=== PATIENT | female | born 2000 | race Caucasian/White ===

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

== ENCOUNTER → 2021-01-23 16:16 | Outpatient (CLI) | payer OTHER, MEDICAID, SELFPAY ==
[2021-01-24 13:35] LABS: Strep Grp B PCR POS for Grp B Strep
== END ==
PROVIDERS: PCP Family Medicine; Visit Provider Family Medicine
DX: Z34.83 Encounter for supervision of other normal pregnancy, third trimester (principal); Z3A.37 37 weeks gestation of pregnancy; Z36.85 Encounter for antenatal screening for Streptococcus B
CPT/HCPCS: 87653

== ENCOUNTER 2021-01-31 02:04 | Observation (INO) | payer OTHER, MEDICAID, SELFPAY | END 2021-01-31 02:55 | disposition home or self-care (01) | LOC: LABOR 02:08 | PROVIDERS: Admitting Provider Family Medicine; PCP Family Medicine; Referring Provider Family Medicine; Visit Provider Family Medicine | DX: O47.1 False labor at or after 37 completed weeks of gestation (principal); Z3A.38 38 weeks gestation of pregnancy | CPT/HCPCS: 59025; G0378; G0379 ==

== ENCOUNTER 2021-01-31 09:29 | Inpatient (IN) | payer OTHER, MEDICAID, SELFPAY ==
--- NOTE | 2021-01-31 10:42 | P.HPOB_ITS ---
OB HPI Date/Time Date of admission: 01/31/21 Date Patient Seen: 01/31/21 History of Present Condition Chief complaint: OBS/LABOR : 2 Para: 1 Estimated Date of Delivery: 02/12/21 Estimated Gestational Age (weeks): 38w2d Narrative: Yessenia Jimenez is a 20 year old at 38 weeks and 2 days gestation. Regular contractions began last night and picked up in intensity at about 2 this morning. She presented to the center but was sent home due to lack of cervical change. She returned this morning and was found to be 4 cm. Denies leaking or bleeding and reports good movement. has been uncomplicated. OB history: [birth year]/09/19 38 8 5 lb 14.7 oz Fem nir vaginal live - full term epidural IH w Dr. Dennis 17 mos+, still BF ? [place] History of Present care: good care, initiated at week # (9), number of visits (10) and pounds weight gain (13) Dating criteria: based on 1st trimester US only Ultrasounds: normal mid trimester US Preadmission Labs Blood type: A (+) positive -: Antibody screen: negative, GBS status: positive, HBsAG: negative, HIV: negative and RPR/VDLR: negative -: Chlamydia screen: not detected and Gonorrhea screen: not detected -: Rubella: immune and Varicella: not immune HCT: 31.5 HCAB: negative Quad screen: Normal Urine: Negative 1 hr GTT: 148 3 hr GTT: 1 hr (154), 2 hr (120) and 3 hr (123) Fasting blood glucose: 81 Evaluation Evaluation Baseline heart rate: 145 Variability: Moderate (11-25) monitor accelerations: Absent Monitor Decelerations: Absent Contraction Frequency (minutes): 4 Status: Category l Cervical dilation (cm): 8 Cervical effacement (%): 100 station: 0 PFSH Medical History Spontaneous vaginal delivery Family History Mother No problems noted. Father Family estrangement Grandmother Diabetes mellitus Grandfather Hyperlipidemia Grandmother Family estrangement Grandfather Family estrangement Family/Other Childhood asthma Depression Family/Other Down syndrome Social History marital status: unmarried,living together number of children: 1 household members: spouse, family and children lives independently: No caregiver/support person: No pets and animals: Yes (1 Dog: Does not trust around baby;aware & carefulsometimes snaps randomly) education level: high school occupational status: employed current occupational exposures/hazards: No special fito needs: No seatbelt use: always do you feel safe at home: Yes Smoking Status: Never smoker alcohol intake: former substance use type: does not use during the past year weight has: remained stable well-balanced diet: daily or most days daily servings fruits/ve-1 caffeine: Yes (Every other day: 1/2-1 cup.) Type(s) of exercise: none and normal ROM and activity Meds Home Medications and Allergies Home Medications Medication Instructions Recorded Confirmed Type prenat.vits,terrell,fig-kunw-oyrvh 1 tab PO DAILY 10/07/18 10/21/20 History sertraline 50 mg tablet 50 mg PO DAILY #30 tab 09/16/20 10/21/20 Rx Allergies Allergy/AdvReac Type Severity Reaction Status Date / Time No Known Drug Allergies Allergy Verified 10/21/20 08:18 Exam Vital Signs (past 8 hours): Temperature 98.1? blood pressure 117/77 heart rate 85 Const General: healthy appearing and comfortable HENMT Head: normal to inspection Ears: hearing grossly normal bilaterally Nose: external nose normal Face and sinus: normal facial exam Mouth: oral mucosae normal Eyes General: appearance normal, both eyes and all related structures Neck Neck: normal visual inspection Resp Effort & Inspection: normal respiratory effort Auscultation: clear to auscultation bilaterally Cardio Rate: regular rate Rhythm: regular rhythm Heart Sounds: no murmurs GI Other: Gravid External Female Exam: normal external appearance Manual OB Exam: dilated 8, effaced fully and station 0 Presentation: vertex Estimated Weight (lbs): 6 Back/Spine/Pelvis Back: normal to inspection Skin General: no rashes or lesions noted Extrem General: normal to inspection and no pedal edema Objective Labs Result Diagrams: 01/31/21 10:45 Assessment and Plan Assessment and Plan Assessment and Plan narrative: 20-year-old 38 weeks and 2 days in active labor. Patient now comfortable with epidural. GBS positive, COVID negative. Plan GBS prophylaxis with penicillin AROM after adequate antibiotics if not yet spontaneously ruptured Anticipate vaginal delivery
[2021-01-31 11:09] LABS: Add Manual Diff / Slide Review NO; Basophils Absolute Auto 0 /uL (0-100); Basophils Percent Auto 0.2 % (0-2); Eosinophils Absolute Auto 0 /uL (0-450); Hematocrit 31.5 % (36-46); Hemoglobin 10.3 g/dL (12.0-16.0); Lymphocytes Absolute Auto 1300 /uL (1100-4500); Lymphocytes Percent Auto 12.6 % (25-40); Mean Corpuscular HGB Conc 32.7 % (30-36); Mean Corpuscular Hemoglobin 25.7 PG (26-34); Mean Corpuscular Volume 78.5 fL (80-100); Monocytes Absolute Auto 400 /uL (0-900); Monocytes Percent Auto 4.3 % (3-14); Neutrophils Absolute Auto 8400 /uL (1500-7000); Neutrophils Percent Auto 82.9 % (50-75); Platelet Count 250 X10^3/uL (150-400); Red Blood Cell Count 4.02 X10^6/uL (4.0-5.2); Red Cell Distribution Width 14.1 % (11.6-14.8); White Blood Cell Count 10.1 X10^3/uL (4.5-11.0)
[2021-01-31] MEDS: LACTATED RINGERS 1,000 ML 100 ML IV (11:33)
[2021-01-31 11:34] LABS: COVID19 - ADMIT (NP swab/PCR) Negative (Negative)
[2021-01-31] MEDS: PENICILLIN G POTASSIUM 5,000,000 UNIT in DEXTROSE 5% IN WATER 250 ML IV (11:34)
[2021-01-31 11:54] VITALS: BP 127/74
[2021-01-31] MEDS: PENICILLIN G POTASSIUM 3,000,000 UNIT/50 ML FROZ.PIGGY 100 UNIT IV (14:57)
--- NOTE | 2021-01-31 16:03 | PM.OBPRVD ---
Labor & Delivery Delivery date: 01/31/21 Intrapartal Events: None Route of delivery: L&D Laceration Description: Perineal - 2nd Degree Delivery repair: chromic Estimated blood loss (mL): 200 Anesthesia Type: Epidural Narrative: Patient is a 20-year-old at 38 weeks and 2 days gestation who arrived in active labor. She was GBS positive and received 2 doses of antibiotics prior to delivery. She received an epidural with adequate pain control. Stage I duration 5 hours and 10 minutes. Artificial rupture membranes occurred prior to initiation of pushing at 3:23 p.m.. She went on to deliver a vigorous male infant at 3:37 p.m.. was vertex and ELIZABETH. He was immediately placed on mother's abdomen. Cord was clamped and cut after 1 minute delay. Apgars were 8 and 9. No resuscitation of the required. Stage II duration 27 minutes. Placenta delivered at 1541 after active management and appeared intact with a three-vessel cord. 20 units of Pitocin given after delivery of placenta. His second-degree perineal laceration was repaired in the low fashion with 3-0 Vicryl with good hemostasis. Uterine fundus firm well below umbilicus after repair. EBL 200 mL. Needle and sponge counts were correct. The vagina was inspected and no items were left in situ. Patient was doing well with Manny, her and boyfriend's mother at bedside. [place] Baby 1: Infant gender: Male Presentation: vertex Position: Right Occiput Anterior Placenta delivery description: Spontaneous Cord Vessel Description: 3 Vessels score (1 min): 8 score (5 min): 9 weight: 7 lb 7.649 oz
[2021-01-31] MEDS: ACETAMINOPHEN 325 MG TABLET 650 MG PO (19:50)
[2021-01-31] MEDS: IBUPROFEN 600 MG TABLET PO (19:50)
[2021-01-31] MEDS: DERMOPLAST SPRAY 20% 60 ML 1 SPRAY TOP (19:51)
[2021-01-31] MEDS: LANOLIN OINT 7 GM 1 APPLIC TOP (19:51)
[2021-02-01] MEDS: IBUPROFEN 600 MG TABLET PO (03:31)
[2021-02-01] MEDS: ACETAMINOPHEN 325 MG TABLET 650 MG PO (03:32)
--- NOTE | 2021-02-01 08:35 | P.DS_ITS ---
Discharge Providers Provider Date of admission: 01/31/21 09:29 Discharge Date: 02/01/21 Primary care physician: Belia Dennis DO Consults: 02/01/21 17:20 Consult to [employer] Routine Comment: Discharge provider: Belia Dennis DO Summary Hospital Course Date Patient Seen: 02/01/21 Time Patient Seen: 08:30 Diagnoses: 38 weeks of Spontaneous vaginal delivery Hospital Course: Patient is a 20 year old G2 now P2 after uncomplicated vaginal delivery. She presented in active labor and received an epidural. She received two doses of PCN prior to of a vigorous male infant. a Second degree perineal laceration was repaired in the usual fashion. course was uncomplicated. She was ambulating, voiding and passing flatus. Vaginal bleeding light to moderate as expected. Pain controlled with ibuprofen. well without issues in the . Advised patient to call for fevers, severe pain or bleeding through a pad an hour. Follow up in clinic for 6 week visit. Peripartum Data Infant Delivery Method: Natural Vaginal Laceration Description: Perineal - 2nd Degree complications: none [place] 1: Gender: Male Disposition of : home Time Spent with Patient Time attestation: Total time spent providing and/or coordinating discharge services: Objective Labs Result Diagrams: 01/31/21 10:45 Labs: Laboratory Results - last 24 hr 01/31/21 01/31/21 01/31/21 10:45 10:45 11:10 WBC 10.1 RBC 4.02 Hgb 10.3 L Hct 31.5 L MCV 78.5 L MCH 25.7 L MCHC 32.7 RDW 14.1 Plt Count 250 Neut % (Auto) 82.9 H Lymph % (Auto) 12.6 L Mayes % (Auto) 4.3 Eos % (Auto) 0.0 L Baso % (Auto) 0.2 Neut # (Auto) 8400 H Lymph # (Auto) 1300 Mayes # (Auto) 400 Eos # (Auto) 0 Baso # (Auto) 0 SARS-CoV-2 (PCR) Negative Blood Type A Positive Antibody Screen Negative Exam Vital Signs (past 8 hours): Temperature 98.6? blood pressure 109/78 heart rate 77 Narrative Exam Narrative: General: Awake and alert, no acute distress. HEENT: NCAT, EOMI, moist oral mucosa CV: Regular rate and rhythm, no murmurs, rubs or gallops Lungs: CTAB, no wheezes, rales, or rhonchi Abdomen: Soft, nontender; bowel tones active; uterus firm 1 cm below umbilicus Extremities: Warm, no edema, 2+ pedal pulses bilaterally Discharge Plan Discharge Plan Patient Disposition: Home Discharge orders & Medications Prescriptions: New docusate sodium 100 mg Capsule 100 mg PO DAILY Qty: 30 RF: 0 ibuprofen 600 mg Tablet 600 mg PO Q6HR PRN (Reason: Pain, Mild (1-3)) Qty: 30 RF: 0 Continued sertraline 50 mg tablet 50 mg PO DAILY Qty: 30 RF: 3 prenat.vits,terrell,xkh-zbqr-[id number] tablet 1 tab PO DAILY RF: 0 Follow up/Referrals: Belia Dennis DO [Primary Care Provider] - 6 Weeks (to call [phone] with any questions or concerns. and to make an appointment to see Dr Dennis in 6 weeks) Diet/Activity/Treatments Diet: Diet as Tolerated Skin/Wound/Dressing Care Report to your healthcare provider any signs of infection, such as:: chills, fever, night sweats, increased pain, unusual drainage and unusual redness Visit Report/Discharge Packet Stand Alone Forms: Discharge: Care Visit Report Forms: Patient Portal/API, Stroke Signs & Symptoms Discharge Data Primary Care Provider: Belia Dennis
[2021-02-01 10:49] VITALS: BP 127/74; PULSE 98; RESP 18; TEMP 36.9
== END 2021-02-01 16:35 | disposition home or self-care (01) | DRG 560 ==
PROVIDERS: Admitting Provider Family Medicine; PCP Family Medicine; Referring Provider Family Medicine; Visit Provider Family Medicine
DX: O99.824 Streptococcus B carrier state complicating childbirth (principal); Z3A.38 38 weeks gestation of pregnancy; Z37.0 Single live birth; O70.1 Second degree perineal laceration during delivery; Z20.822 Contact with and (suspected) exposure to COVID-19; O47.1 False labor at or after 37 completed weeks of gestation
CPT/HCPCS: 01967; 59025; 59050; 59409; 85025; 86850; 86900; 86901; 87635; C9803; G0378; G0379; J2540

== ENCOUNTER → 2021-04-03 18:36 | Outpatient (ROUT) | payer OTHER, MEDICAID, SELFPAY ==
[2021-04-03 20:15] LABS: Urine N gonorrhoeae NOT DETECTED
[2021-04-03 20:23] LABS: Urine Chlamydia NOT DETECTED
== END ==
PROVIDERS: PCP Family Medicine; Visit Provider Family Medicine
DX: Z30.09 Encounter for other general counseling and advice on contraception (principal)
CPT/HCPCS: 81025; 87491; 87591

== ENCOUNTER → 2023-12-07 11:46 | Outpatient (CLI) | payer OTHER, MEDICAID, SELFPAY ==
[2023-12-07 12:10] LABS: Add Manual Diff / Slide Review NO; Basophils Absolute Auto 0 /uL (0-100); Basophils Percent Auto 0.4 % (0-2); Eosinophils Absolute Auto 0 /uL (0-450); Eosinophils Percent Auto 0.8 % (2-4); Hematocrit 41.6 % (36-46); Hemoglobin 14.1 g/dL (12.0-16.0); Lymphocytes Absolute Auto 1800 /uL (1100-4500); Mean Corpuscular HGB Conc 33.8 % (30-36); Mean Corpuscular Hemoglobin 30.4 PG (26-34); Mean Corpuscular Volume 89.9 fL (80-100); Monocytes Absolute Auto 500 /uL (0-900); Monocytes Percent Auto 8.3 % (3-14); Neutrophils Absolute Auto 3500 /uL (1500-7000); Neutrophils Percent Auto 60.5 % (50-75); Platelet Count 311 X10^3/uL (150-400); Red Blood Cell Count 4.62 X10^6/uL (4.0-5.2); Red Cell Distribution Width 13.4 % (11.6-14.8); White Blood Cell Count 5.9 X10^3/uL (4.5-11.0)
[2023-12-07 14:02] LABS: HEMOLYSIS < 15 (0-50); Iron 190 ug/dL (37-170)
[2023-12-07 14:13] LABS: Percent Iron Saturation 42 % (15-50); Total Iron Binding Capacity 448 ug/dL (265-497); Transferrin 358 mg/dL (206-381)
[2023-12-07 14:34] LABS: TSH w/ Reflex to FT4 1.35 uIU/mL (0.47-4.68)
== END ==
PROVIDERS: PCP Family Medicine; Referring Provider Family Medicine; Visit Provider Family Medicine
DX: F41.9 Anxiety disorder, unspecified (principal); F32.A Depression, unspecified; R53.83 Other fatigue; Z87.59 Personal history of other complications of pregnancy, childbirth and the puerperium; Z86.59 Personal history of other mental and behavioral disorders
CPT/HCPCS: 36415; 83540; 83550; 84443; 85025